=== PATIENT | male | born 1950 | race Caucasian/White ===

== ENCOUNTER → 2016-06-16 | Outpatient (CLI) | payer OTHER ==
--- NOTE | 2016-06-17 10:17 | MR ---
EXAMINATION: MRI of the left shoulder HISTORY: Sprain COMPARISON: None TECHNIQUE: Multiplanar and multisequence images obtained of the left shoulder without contrast. FINDINGS: There is a type II acromion. Moderate to severe acromioclavicular osteophytic changes are noted. Full-thickness tears of the supraspinatus and infraspinatus tendons are noted with approximat linus 1.1 cm of retraction. The teres minor tendon appears intact. The long head biceps tendon is thin chitra however within the bicipital groove. The proximal aspect of the long head biceps tendon demonstr ates mildly increased T2 signal. The subscapularis tendon appears intact however demonstrates modera te increased T2 signal. There is likely a posterior and superior labral tear. Mild articular cartila ge thinning is noted within the glenohumeral joint. The right humerus is high riding. There is a mod erate joint effusion extending into the subdeltoid space. Inferior glenohumeral ligament appears int act. No suspicious bone marrow signal changes. IMPRESSION: 1. Full-thickness supraspinatus and infraspinatus tears with retraction and muscular atrophy . 2. Mild proximal long head biceps tendinopathy. 3. Moderate subscapularis tendinopathy. 4. Acromioclavicular and glenohumeral osteoarthritic changes. 5. Probable superior to posterior labral tear.
== END ==
LOC: MW.MRI 15:35
PROVIDERS: ATTEND General Practice
DX: M75.122 Complete rotator cuff tear or rupture of left shoulder, not specified as traumatic (principal); M75.22 Bicipital tendinitis, left shoulder; M19.012 Primary osteoarthritis, left shoulder
CPT/HCPCS: 73221-26-LT; 73221-LT

== ENCOUNTER → 2016-07-16 | Outpatient (CLI) | payer OTHER ==
--- NOTE | 2016-07-17 14:25 | CR ---
EXAM DATE: 07/16/16 PATIENT'S AGE: 66 Patient: AYANNA KARIMI Facility: [place], [place] Site . Site : [id number] Study: XRay Shoulder Left [id number]/26/2017 9:43:25 AM Ordering Physician: Gaetano Dolan Pa-C Final Report: HISTORY: Pain. Findings: Three views of the left shoulder demonstrate moderate degenerative changes of the AC joint. The glenohumeral joint appears maintained. No soft tissue calcification, fracture or dislocation seen. Impression: Moderate degenerative changes of the left AC joint. Dictated by Leighann Parker MD @ Jul 17 2016 12:17AM (Electronic Signature) Report Signed by Proxy. AVI
== END ==
LOC: MW.CHORTHO 07:43
PROVIDERS: ATTEND Physician Assistant
DX: M25.512 Pain in left shoulder (principal)
CPT/HCPCS: 73030-26-LT; 73030-LT